=== PATIENT | male | born 1995 | race Caucasian/White ===

== ENCOUNTER 2024-02-17 20:17 | Emergency (ER) | payer MEDICAID ==
[~2024-02-17] VITALS: Ht 185.4 cm; Wt 160.0 kg
[2024-02-17 20:21] VITALS: BP 151/92; RESP 18; TEMP 97.8; O2SAT 99
[2024-02-17 20:23] VITALS: PULSE 99
[2024-02-17] MEDS: LIDOCAINE HCL/PF 1% 10 MG/ML 5ML VIAL INFIL ONE (20:30)
[2024-02-17] MEDS: BACITRACIN ZINC OINT UDPKT TOP ONE (20:30)
[2024-02-17] MEDS: TETANUS, DIPHTHERIA, PERTUSSIS VAC/PF 0.5ML (>10YR OLD) IM ONE (21:39)
[2024-02-17] MEDS ORDERED: AMOX1TAB16 MT (21:40)
== END 2024-02-17 21:53 | disposition home or self-care (01) ==
LOC: ER 20:17
DX: S01.81XA Laceration without foreign body of other part of head, initial encounter (principal); W54.0XXA Bitten by dog, initial encounter; Y93.89 Activity, other specified; Y92.89 Other specified places as the place of occurrence of the external cause; Y99.8 Other external cause status
CPT/HCPCS: 99283; 12011; J3490; 90715